=== PATIENT | male | born 1965 | race Caucasian/White ===

== ENCOUNTER 2018-03-08 16:33 | Emergency (ER) | payer OTHER ==
[2018-03-08 16:37] VITALS: BP 149/95; PULSE 92; TEMP 98.7; BMI 32.8
--- NOTE | 2018-03-08 16:44 | PDOC ---
History of Present Illness - General Chief Complaint: Pain Stated Complaint: ABD PAIN Time Seen by Provider: 03/08/18 16:34 History Source: Patient - History of Present Illness Initial Comments: 03/08/18 17:07 The patient is a 52 year old male with a PMH of NIDDM, HLD and diverticulitis or colitis (patient is unsure, states he was treated with antibiotics previously for the condition) presents to our ED c/o 2 day h/o abdominal pain. Pain is sharp, intermittent, localized to his LLQ/suprapubic area and he is unable to identify any triggering or relieving facts. Endorses subjective fevers/subjective chills. Notes two watery bowel movements today. Tolerating PO intake but notes decreased appetite 2/2 to his symptoms. States his last diverticulitis attack was 3 years previous and he follows with Dr. Tate (GI) . Most recent evaluation with Dr. Tate was 6 months previous and he cannot recall any concerning findings. The patient denies chest pain, shortness of breath. The patient denies sore throat, runny nose, headache, visual changes. The patient denies numbness/tingling NKDA Surgical: none reported Social: denies toxic habits, including lifetime non-smoker PMD: Dr. Mars Randhawa Past History - Past Medical History Allergies/Adverse Reactions: Allergies Allergy/AdvReac Type Severity Reaction Status Date / Time No Known Allergies Allergy Verified 03/08/18 16:34 Home Medications: Ambulatory Orders Metformin HCl [Glucophage] 500 mg PO DAILY 03/08/18 Anemia: No Asthma: No Cancer: No Cardiac Disorders: No CVA: No COPD: No CHF: No Dementia: No Diabetes: Yes GI Disorders: Yes (DIVERTICULOSIS, COLITIS) Disorders: No HTN: No Hypercholesterolemia: No Liver Disease: No Seizures: No Thyroid Disease: No - Surgical History Abdominal Surgery: No Appendectomy: No Cardiac Surgery: No Cholecystectomy: No Lung Surgery: No Neurologic Surgery: No Orthopedic Surgery: No - Suicide/Smoking/Psychosocial Hx Smoking Status: No Smoking History: Never smoked Have you smoked in the past 12 months: No Number of Cigarettes Smoked Daily: 0 Information on smoking cessation initiated: No Hx Alcohol Use: No Drug/Substance Use Hx: No Review of Systems - Review of Systems Constitutional: Yes: Chills, Fever HEENTM: No: Recent change in vision Respiratory: No: Shortness of Breath, Wheezing Cardiac (ROS): No: Lightheadedness, Palpitations, Syncope ABD/GI: Yes: Abdominal cramping. No: Constipated, Diarrhea, Nausea, Rectal Bleeding, Vomiting : No: Burning, Dysuria *Physical Exam - Vital Signs Last Vital Signs Temp Pulse Resp BP Pulse Ox 98.7 F 92 H 18 149/95 98 03/08/18 16:33 03/08/18 16:33 03/08/18 16:33 03/08/18 16:33 03/08/18 16:33 - Physical Exam General Appearance: Yes: Nourished, Obese HEENT: positive: Normal Voice, Hearing Grossly Normal Neck: positive: Trachea midline, Supple Respiratory/Chest: positive: Lungs Clear, Normal Breath Sounds. negative: Crackles, Rhonchi, Stridor, Wheezing Cardiovascular: positive: S1, S2. negative: Murmur Gastrointestinal/Abdominal: positive: Normal Bowel Sounds, Soft, Other (LLQ TTP w/o peritoneal signs) Male Genitalia: negative: testicular tenderness, epididymus tender Musculoskeletal: negative: CVA Tenderness (R), CVA Tenderness (L) Extremity: positive: Normal Capillary Refill, Normal Inspection Integumentary: positive: Normal Color, Dry, Warm Neurologic: positive: Fully Oriented, Alert Moderate Sedation - Procedure Monitoring Vital Signs: Procedure Monitoring Vital Signs Temperature 98.7 F 03/08/18 16:33 Pulse Rate 92 H 03/08/18 16:33 Respiratory Rate 18 03/08/18 16:33 Blood Pressure 149/95 03/08/18 16:33 O2 Sat by Pulse Oximetry (%) 98 03/08/18 16:33 ED Treatment Course - LABORATORY CBC & Chemistry Diagram: 03/08/18 17:15 03/08/18 17:15 Medical Decision Making - Medical Decision Making 03/08/18 17:17 52 year old male presents with abdominal pain. VS unremarkable. Abdominal and suprapubic TTP on PE. Frontal diagnosis: diverticulitis, colitis, gastritis also consider cystitis, pyelonephritis, less likely STI. Will obtain CBC,CMP, UA/UC as well as CT scan. Tylenol for pain control. Reassess 03/08/18 18:01 CBC, CMP unremarkable Patient reassessed @ bedside, symptomatically improved CT pending 03/08/18 18:39 Awaiting audiovisual technician from [facility] Patient resting comfortably. 03/08/18 18:[address] Will sign out to night team. *DC/Admit/Observation/Transfer Diagnosis at time of Disposition: Abdominal pain - Discharge Dispostion Condition at time of disposition: Stable - Referrals - Patient Instructions - Post Discharge Activity
[2018-03-08] MEDS ORDERED: SODIUM CHLORIDE 0.9% 500 ML INFUS.BAG IV ONE (17:04)
[2018-03-08] MEDS ORDERED: ACETAMINOPHEN 1000 MG/100 ML VIAL (NON FORMULARY) IVPB ONE (17:04)
--- NOTE | 2018-03-08 17:18 | PDOC ---
Attending Attestation - Resident Resident Name: Maryam Jimenez - ED Attending Attestation I have performed the following: I have examined & evaluated the patient, The case was reviewed & discussed with the resident, I agree w/resident's findings & plan, Exceptions are as noted - HPI HPI: 03/08/18 16:49 52yo M hx NIDDM, HL presents to the ED with LLQ and suprapubic abd pain x 2 days. Noticed pain when woke up yesterday. Pain is sharp intermittent, 7/10. No fevers, +chills. Also reports 2 watery non bloody BM since yesterday. Denies N/ V. Denies urinary sxs. Denies testicular discomfort but states pain at times radiates to just above the L testicle. Pt reports history of either colitis or diverticulutis 2 years ago for which he received abx and got better, he is not sure which it is. Denies headache, focal weakness/numbness, cp, sob, rashes. - Physicial Exam PE: 03/08/18 17:36 GENERAL: Awake, alert, and fully oriented, in no acute distress HEAD: No signs of trauma EYES: PERRLA, EOMI, sclera anicteric, conjunctiva clear ENT: Nares patent, oropharynx clear without exudates. Moist mucosa NECK: Normal ROM, supple, no lymphadenopathy, JVD, or masses LUNGS: Breath sounds equal, clear to auscultation bilaterally. No wheezes, and no crackles HEART: Regular rate and rhythm, normal S1 and S2, no murmurs, rubs or gallops ABDOMEN: Soft, +LLQ ttp, no distention, rebound or guarding : No CVAT. testicles b/l with no ttp, no masses palpated, normal lie, normal cremasteric reflex. No penile lesions. EXTREMITIES: Normal range of motion, no edema. No cords, erythema, or tenderness NEUROLOGICAL: Normal speech, cranial nerves intact, 5/5 strength and sensation to light touch in all 4 extremities, normal gait SKIN: Warm, Dry, normal turgor, no rashes or lesions noted. - Medical Decision Making 03/08/18 17:47 52yo M presents to the ED with LLQ pain a/w chills and loose BM Vitals unremarkable Exam with LLQ ttp, no rebound ttp. exam wnl DDx includes diverticulitis vs colitis vs UTI vs renal colic vs enteritis. Plan -labs -UA/Ucx -CTAP -pain control -IVF -reassess 03/08/18 18:58 Labs wnl, no leukocytosis UA, CTAP pending Pain well controlled Pt signed out to overnight attending for f/u pending diagnostics, reassessment and dispo
[2018-03-08] MEDS ORDERED: ACETAMINOPHEN INJECTION 100 ML IVPB ONE (17:20)
[2018-03-08 17:32] LABS: EOS % 1.5 % (0-4.5); HEMATOCRIT 42.4 % (35.4-49); HEMOGLOBIN 13.8 GM/dl (11.7-16.9); LYMPH % 23.7 % (8-40); MCHC 32.6 g/dl (32.0-35.9); MEAN PLT VOLUME 8.9 fl (7.5-11.1); MONO % 9.8 % (3.8-10.2); PLATELET COUNT 255 K/MM3 (134-434); RBC 4.93 M/mm3 (4.00-5.60); RDW 13.5 % (11.9-15.9); WHITE BLOOD COUNT 10.1 K/mm3 (4.0-10.8)
[2018-03-08 17:52] LABS: ALBUMIN 3.8 g/dl (3.5-5.0); ALK PHOS 76 U/L (32-92); ANION GAP 10 MMOL/L (8-16); BILIRUBIN,TOTAL 0.6 mg/dl (0.2-1.0); BLOOD UREA NITROGEN 14 mg/dl (7-18); CALCIUM 9.4 mg/dl (8.4-10.2); CHLORIDE 98 mmol/L (98-107); CO2 28 mmol/L (22-28); CREATININE 0.8 mg/dl (0.6-1.3); GLUCOSE,RANDOM 141 mg/dl (74-106); POTASSIUM 3.8 mmol/L (3.5-5.1); SGOT/AST 21 U/L (10-42); SGPT/ALT 24 U/L (10-40); SODIUM 136 mmol/L (136-145); TOT PROT 7.4 g/dl (6.4-8.3)
[2018-03-08 19:31] LABS: URINE APPEARANCE Clear; URINE BILIRUBIN Negative (NEGATIVE); URINE COLOR Yellow; URINE GLUCOSE (UA) Negative (NEGATIVE); URINE KETONE Negative (NEGATIVE); URINE LEUK ESTERASE Negative (NEGATIVE); URINE NITRITE Negative (NEGATIVE); URINE PROTEIN Negative (NEGATIVE); URINE UROBILINOGEN 0.2 (0.2-1.0)
--- NOTE | 2018-03-08 19:34 | PDOC ---
*Physical Exam - Vital Signs Last Vital Signs Temp Pulse Resp BP Pulse Ox 98.7 F 92 H 18 149/95 98 03/08/18 16:33 03/08/18 16:33 03/08/18 16:33 03/08/18 16:33 03/08/18 16:33 ED Treatment Course - LABORATORY CBC & Chemistry Diagram: 03/08/18 17:15 03/08/18 17:15 - ADDITIONAL ORDERS Additional order review: Laboratory Results 03/08/18 17:15 Sodium 136 Potassium 3.8 Chloride 98 Carbon Dioxide 28 Anion Gap 10 BUN 14 Creatinine 0.8 Creat Clearance w eGFR > 60 Random Glucose 141 H Calcium 9.4 Total Bilirubin 0.6 AST 21 ALT 24 Alkaline Phosphatase 76 Total Protein 7.4 Albumin 3.8 03/08/18 17:15 RBC 4.93 MCV 86.0 MCHC 32.6 RDW 13.5 MPV 8.9 Neutrophils % 63.0 Lymphocytes % 23.7 Monocytes % 9.8 Eosinophils % 1.5 Basophils % 2.0 - Medications Given in the ED: ED Medications Discontinued Medications Generic Name Dose Route Start Last Admin Trade Name Obedq PRN Reason Stop Dose Admin Acetaminophen 1,000 mg 03/08/18 17:04 03/08/18 17:25 Ofirmev Injection - IVPB 03/08/18 17:05 1,000 mg ONCE ONE Administration Sodium Chloride 1,000 ml 03/08/18 17:04 03/08/18 17:25 Normal Saline - IV 03/08/18 17:05 1,000 ml ONCE ONE Administration Medical Decision Making - Medical Decision Making 03/08/18 19:33 Asked to follow-up CAT scan CAT scan positive for acute diverticulitis. Patient well-appearing no apparent distress no fever no elevated white blood cell count reasonable candidate for outpatient treatment We'll treat with Cipro Flagyl and have patient follow up with his primary care provider this week. Findings, the need for follow-up and strict return instructions discussed with patient. *DC/Admit/Observation/Transfer Diagnosis at time of Disposition: Diverticulitis - Discharge Dispostion Disposition: HOME Condition at time of disposition: Stable Decision to Admit order: No - Referrals - Patient Instructions Printed Discharge Instructions: Diverticulitis Additional Instructions: Take Cipro and Flagyl as prescribed. Take an [id number] probiotic as directed on package. Alternate [id number] Tylenol Motrin as directed on package as needed for pain. Drink plenty of fluids. Follow-up with her oil dispenser this week. Return to the emergency department for any severe worsening symptoms fever or for any concerns. - Post Discharge Activity Forms/Work/School Notes: Back to Work
== END 2018-03-08 20:05 | disposition home or self-care (01) ==
LOC: FER 16:33
PROC: 3E033NZ Introduction of Analgesics, Hypnotics, Sedatives into Peripheral Vein, Percutaneous Approach (ICD-10-PCS; principal; 2018-03-08)
PROC: 3E0337Z Introduction of Electrolytic and Water Balance Substance into Peripheral Vein, Percutaneous Approach (ICD-10-PCS; 2018-03-08)
DX: R10.9 Unspecified abdominal pain (principal)
CPT/HCPCS: 36415; 74177-TC; 80053; 81003; 85025; 87086; 99285-25; J0131